=== PATIENT | female | born 2000 | race Caucasian/White ===

== ENCOUNTER 2019-05-13 12:17 | Emergency (ER) | payer BC ==
[~2019-05-13] VITALS: Ht 160 cm; Wt 70.5 kg
[2019-05-13] MEDS ORDERED: COMBISP IH (12:39)
[2019-05-13] MEDS ORDERED: CROM40SP12 NASAL (12:39)
[2019-05-13] MEDS ORDERED: PROPARACAINE HCL 0.5% 15 ML OPHTHALMIC SOLUTION OU ONE (13:15)
[2019-05-13] MEDS ORDERED: FLUORESCEIN SODIUM 1 MG STRIP OU ONE (13:15)
[2019-05-13] MEDS ORDERED: ACETAMINOPHEN 325 MG TABLET PO ONE (14:15)
[2019-05-13] MEDS ORDERED: TraMADol HCL 50 MG TABLET PO ONE (14:45)
[2019-05-13 14:52] VITALS: BP 120/75
== END 2019-05-13 16:17 | disposition home or self-care (01) ==
LOC: EMS 12:17
DX: H10.9 Unspecified conjunctivitis (principal); R42 Dizziness and giddiness; R11.0 Nausea; J45.909 Unspecified asthma, uncomplicated; Z88.0 Allergy status to penicillin